=== PATIENT | male | born 1975 | race Caucasian/White ===

== ENCOUNTER → 2022-11-28 08:31 | Outpatient (BNVA) | payer OTHER, SELFPAY | PROVIDERS: Visit Provider Internal Medicine | DX: S39.012D Strain of muscle, fascia and tendon of lower back, subsequent encounter (principal); Y04.2XXD Assault by strike against or bumped into by another person, subsequent encounter | CPT/HCPCS: 73130; 99203 ==

== ENCOUNTER → 2022-12-01 08:01 | Outpatient (BNVA) | payer OTHER, SELFPAY | PROVIDERS: Visit Provider Internal Medicine | DX: L03.012 Cellulitis of left finger (principal) | CPT/HCPCS: 99213 ==